=== PATIENT | female | born 1965 | race Hispanic/Latino ===

== ENCOUNTER 2019-12-21 14:26 | Emergency (ER) | payer BC, SELFPAY ==
[2019-12-21 14:49] LABS: #Eosinphils 0.1 thou/uL (0.0-0.7); #Lymphocytes 1.5 thou/uL (1.20-3.40); #Monocytes 0.7 thou/uL (0.11-0.59); #Neutrophils 7.9 thou/uL (1.40-6.50); %Basophils 0.4 % (0.0-1.0); %Lymphocytes 14.3 % (21.0-51.0); %Monocytes 6.5 % (0.0-10.0); %Neutrophils 77.8 % (42.0-75.0); Hemoglobin 13.8 g/dL (12.0-16.0); Mean Corpuscular HGB CONC 33.3 g/dL (32.0-36.0); Mean Corpuscular Hemoglobin 31.2 pg (27.0-31.0); Mean Corpuscular Volume 93.7 fL (78.0-98.0); Mean Platelet Volume 7.5 fL (7.4-10.4); Platelet Count 228 thou/uL (130-400); Red Blood Cell (RBC) Count 4.43 mill/uL (4.20-5.40); White Blood Cell (WBC) Count 10.2 thou/uL (4.8-10.8)
[2019-12-21] MEDS ORDERED: diphenhydrAMINE 50 MG/ML VIAL ONE (14:53)
[2019-12-21] MEDS ORDERED: Metoclopramide 10 MG/10 ML UDCUP ONE (14:53)
[2019-12-21] MEDS ORDERED: Metoclopramide HCl 10 MG/2 ML VIAL ONE (14:53)
[2019-12-21 15:12] LABS: ALT (SGPT) 78 U/L (8-55); AST (SGOT) 48 U/L (5-34); Alkaline Phosphatase 125 U/L (40-110); Anion Gap 12 mmol/L (10-20); BUN (Urea Nitrogen) 14 mg/dL (9.8-20.1); Bilirubin, Total 0.8 mg/dL (0.2-1.2); CK (CPK) 33 U/L (29-168); Calc. Creatinine Clearance 0 mL/min (70-130); Calcium 8.8 mg/dL (7.8-10.44); Carbon Dioxide 27 mmol/L (22-29); Chloride 103 mmol/L (98-107); Estimated GFR-MDRD 74; Globulin 3.2 g/dL (2.4-3.5); Glucose 97 mg/dL (70-105); Potassium 3.7 mmol/L (3.5-5.1); Protein, Total 7.2 g/dL (6.0-8.3); Sodium 138 mmol/L (136-145)
--- NOTE | 2019-12-21 15:35 | RAD ---
EXAM: CHEST ONE VIEW HISTORY: Shortness of breath and chest pain for 3 days COMPARISON: 11/12/2012 FINDINGS: The cardiac silhouette and pulmonary vasculature is within normal limits. The lungs are clear. The os seous structures are intact. No interval change from prior exam. IMPRESSION: No acute cardiopulmonary process.
--- NOTE | 2019-12-25 14:36 | EKG ---
Test Reason : Blood Pressure : / mmHG Vent. Rate : 069 BPM Atrial Rate : 069 BPM P-R Int : 140 ms QRS Dur : 074 ms QT Int : 402 ms P-R-T Axes : 026 002 034 degrees QTc Int : 430 ms Normal sinus rhythm Minimal voltage criteria for LVH, may be normal variant Borderline ECG Reconfirmed by KLEVER CLAROS ([id number]), supervising film or videotape editor KEY NAYLOR ([id number]) on 12/25/2019 2:36:10 PM Referred By: Confirmed By:KLEVER Manning
== END 2019-12-21 17:21 | disposition home or self-care (01) ==
LOC: ERS 14:26
DX: R51 Headache (principal)
CPT/HCPCS: 71045; 80053; 82550; 84484; 85025; 93005; 96365; 96366; 96375; J1200; J2765

== ENCOUNTER 2022-04-17 08:45 | Outpatient (CLI) | payer BC | END 2022-04-17 08:46 | disposition home or self-care (01) | LOC: ULT 08:45 | PROVIDERS: ATTEND Student in an Organized Health Care Education/Training Program | DX: R74.8 Abnormal levels of other serum enzymes (principal); K76.0 Fatty (change of) liver, not elsewhere classified; Z90.49 Acquired absence of other specified parts of digestive tract | CPT/HCPCS: 76705 ==